=== PATIENT | female | born 1960 | race Caucasian/White ===

== ENCOUNTER 2019-05-05 16:17 | Observation (INO) ==
[2019-05-05 18:37] LABS: INR 1.7
[2019-05-05 18:53] LABS: BUN/Creatinine Ratio 24 (6-26); Blood Urea Nitrogen 19 mg/dL (6-20); Calcium 8.8 mg/dL (8.6-10.3); Carbon Dioxide 24 mEq/L (23-29); Chloride 102 mEq/L (98-107); Glucose 188 mg/dL (70-105); Osmolality,Calculated 297 (280-300); Potassium 3.6 mEq/L (3.5-5.1); Sodium 140 mEq/L (136-145); Troponin I < 0.03 ng/mL (< 0.04); eGFR For African Americans > 60 (> 60); eGFR For Non-African Americans > 60 (> 60)
[2019-05-05 18:56] LABS: Basophils % 0.3 %; Eosinophils # 0.3 K/mcL (0.0-0.6); Eosinophils % 2.9 %; Hematocrit 36.5 % (35.3-44.9); Hemoglobin 11.3 g/dL (11.5-15.4); Immature Granulocytes % 0.4 % (0-4); Lymphocytes # 0.7 K/mcL (0.6-4.6); Lymphocytes % 5.9 %; Mean Corpuscular Volume 87.3 fL (83.0-100.0); Monocytes % 9.2 %; Neutrophils # 9.1 K/mcL (1.6-8.9); Platelet Count 170 K/mcL (140-400); Red Blood Count 4.18 M/mcL (3.82-4.97); Red Cell Distribution Width 16.1 % (11.5-14.5); Segmented Neutrophils % 81.3 %; White Blood Count 11.1 K/mcL (4.3-11.1)
[2019-05-05] MEDS ORDERED: 0.9 % Sodium Chloride 1,000 ML IVC ONE (19:05)
[2019-05-05] MEDS ORDERED: Isovue-370 500 ML BOTTLE IVP ONE ×2 (19:05→21:17)
[2019-05-05] MEDS ORDERED: methylPREDNISolone 125 MG/2 ML VIAL IVP ONE (19:08)
[2019-05-05 23:10] LABS: Alanine Aminotransferase 58 Units/L (7-52); Albumin 2.8 g/dL (3.5-5.7); Albumin/Globulin Ratio 0.7 (1.1-2.2); Alkaline Phosphatase 397 Units/L (34-104); Aspartate Amino Transferase 147 Units/L (13-39); Bilirubin,Direct 0.9 mg/dL (0.0-0.2); Bilirubin,Indirect 0.6 mg/dL (0.0-1.0); Bilirubin,Total 1.5 mg/dL (0.3-1.0); Globulin 4.1 g/dL (2.4-3.5); Total Protein 6.9 g/dL (6.4-8.9)
[2019-05-06] MEDS ORDERED: Isovue-370 500 ML BOTTLE IVP ONE (04:50)
[2019-05-06] MEDS ORDERED: Naloxone 0.4 MG/ML INJ IVP PRN (04:51)
[2019-05-06] MEDS ORDERED: methylPREDNISolone 125 MG/2 ML VIAL IVP ONE (05:33)
[2019-05-06] MEDS: 0.9 % Sodium Chloride 1,000 ML IVC SCH ×2 (05:40→18:28)
[2019-05-06 06:27] LABS: Hematocrit 35.8 % (35.3-44.9); Hemoglobin 11.1 g/dL (11.5-15.4); Mean Corpuscular Hemoglobin 27.2 pg (28.0-33.3); Mean Corpuscular Volume 87.7 fL (83.0-100.0); Mean Platelet Volume 9.6 fL (9.4-12.4); Platelet Count 159 K/mcL (140-400); Red Blood Count 4.08 M/mcL (3.82-4.97); White Blood Count 12.8 K/mcL (4.3-11.1)
[2019-05-06 06:31] LABS: INR 1.6; Prothrombin Time 18.7 Seconds (9.4-12.1)
[2019-05-06 06:45] LABS: Alanine Aminotransferase 59 Units/L (7-52); Albumin 2.8 g/dL (3.5-5.7); Albumin/Globulin Ratio 0.7 (1.1-2.2); Alkaline Phosphatase 402 Units/L (34-104); Aspartate Amino Transferase 148 Units/L (13-39); BUN/Creatinine Ratio 36 (6-26); Bilirubin,Direct 0.7 mg/dL (0.0-0.2); Bilirubin,Indirect 0.7 mg/dL (0.0-1.0); Bilirubin,Total 1.4 mg/dL (0.3-1.0); Blood Urea Nitrogen 21 mg/dL (6-20); Calcium 8.8 mg/dL (8.6-10.3); Carbon Dioxide 22 mEq/L (23-29); Chloride 106 mEq/L (98-107); Globulin 4.1 g/dL (2.4-3.5); Glucose 209 mg/dL (70-105); Magnesium 2.1 mg/dL (1.6-2.6); Osmolality,Calculated 297 (280-300); Phosphorous 3.3 mg/dL (2.7-4.5); Potassium 4.1 mEq/L (3.5-5.1); Sodium 139 mEq/L (136-145); Total Protein 6.9 g/dL (6.4-8.9); eGFR For African Americans > 60 (> 60); eGFR For Non-African Americans > 60 (> 60)
[2019-05-06] MEDS: Azithromycin 500 MG in D5% in Water 250 ML IVPB SCH (08:06)
[2019-05-06] MEDS ORDERED: Gabapentin 300 MG CAPSULE PO SCH (09:00)
[2019-05-06] MEDS: cefTRIAXone 1,000 MG in Water for inj. (sterile) 10 ML IVP SCH (09:26)
[2019-05-06] MEDS ORDERED: 0.9 % Sodium Chloride 250 ML IVC SCH (13:30)
[2019-05-06 14:42] LABS: Albumin 2.8 g/dL (3.5-5.7)
[2019-05-06 14:47] LABS: Carcinoembryonic Antigen 87.4 ng/mL (Less than 5.0)
[2019-05-06] MEDS ORDERED: Dextrose Gel 15 GM/37.5 ML TUBE PO PRN ×2 (15:35)
[2019-05-06] MEDS ORDERED: *HR* Dextrose 50 % in Water (Syg) 50 ML SYRINGE IVP PRN (15:35)
[2019-05-06] MEDS ORDERED: D5% in Water 1,000 ML IVC PRN (15:35)
[2019-05-06] MEDS: Insulin LISPRO 300 UNITS/3 ML VIAL SQ SCH ×2 (17:48→22:45)
[2019-05-06] MEDS ORDERED: *HR* Heparin 5,000 UNIT/ML VIAL SQ SCH (18:00)
[2019-05-06] MEDS ORDERED: Benzonatate 100 MG CAPSULE PO PRN (21:08)
[2019-05-06] MEDS: Gabapentin 300 MG CAPSULE PO SCH (22:43)
[2019-05-07] MEDS: Insulin LISPRO 300 UNITS/3 ML VIAL SQ SCH ×4 (08:29→20:53)
[2019-05-07] MEDS: Azithromycin 500 MG in D5% in Water 250 ML IVPB SCH (08:36)
[2019-05-07] MEDS: Gabapentin 300 MG CAPSULE PO SCH (08:37)
[2019-05-07] MEDS: cefTRIAXone 1,000 MG in Water for inj. (sterile) 10 ML IVP SCH (08:37)
[2019-05-07] MEDS: Loratadine 10 MG TABLET PO SCH (08:38)
[2019-05-07] MEDS ORDERED: NON-FORMULARY MEDICATION 1 EACH EACH (Omeprazole Magnesium [Prilosec Otc] 20 MG) PO SCH (09:00)
[2019-05-07] MEDS ORDERED: (Ezetimibe [Zetia] 10 MG) PO SCH (09:00)
[2019-05-07] MEDS: Benzonatate 100 MG CAPSULE PO PRN ×2 (09:56→21:07)
[2019-05-07] MEDS: Ketorolac 15 MG/ML VIAL IVP PRN ×3 (09:57→21:08)
[2019-05-07 10:40] LABS: INR 1.5; Prothrombin Time 17.6 Seconds (9.4-12.1)
[2019-05-07 10:49] LABS: % Iron Saturation 19 % (15-50); Iron 49 mcg/dL (50-170); Transferrin 189 mg/dL (203-362)
[2019-05-07 11:07] LABS: Ferritin 1116 ng/mL (10-120)
[2019-05-07 11:15] LABS: Folate > 22.3 ng/mL (3.0-16.0); Vitamin B12 > 1500 pg/mL (250-1100)
[2019-05-07] MEDS ORDERED: 0.9 % Sodium Chloride 500 ML ONE (13:27)
[2019-05-07] MEDS ORDERED: *HR* Midazolam HCl 2 MG/2 ML VIAL IVP ONE (13:32)
[2019-05-07] MEDS ORDERED: *HR* FentaNYL (PF) 100 MCG/2 ML VIAL IVP ONE (13:32)
[2019-05-07] MEDS ORDERED: Gabapentin 300 MG CAPSULE PO SCH (21:00)
[2019-05-08] MEDS ORDERED: *HR* Heparin 5,000 UNIT/ML VIAL SQ SCH (06:00)
[2019-05-08] MEDS: Insulin LISPRO 300 UNITS/3 ML VIAL SQ SCH (08:07)
[2019-05-08] MEDS: Azithromycin 500 MG in D5% in Water 250 ML IVPB SCH (08:08)
[2019-05-08] MEDS: cefTRIAXone 1,000 MG in Water for inj. (sterile) 10 ML IVP SCH (08:09)
[2019-05-08] MEDS: Loratadine 10 MG TABLET PO SCH (08:10)
[2019-05-08 10:29] VITALS: BP 133/80
[2019-05-08] MEDS: Ketorolac 15 MG/ML VIAL IVP PRN (10:50)
[2019-05-08] MEDS: Benzonatate 100 MG CAPSULE PO PRN (10:51)
[2019-05-09 09:47] LABS: AFP Tumor Marker Non-Pregnant 4 ng/mL (0-9); Cancer Antigen-GI (CA 19-9) 40220 U/mL (0-37)
[2019-05-09 09:51] LABS: Immunoglobulin A 858 mg/dL (68-408); Immunoglobulin G 1600 mg/dL (768-1632); Immunoglobulin M 58 mg/dL (35-263)
[2019-05-09 11:07] LABS: Kappa Qnt Free Light Chains 3.18 mg/dL (0.33-1.94); Lambda Qnt Free Light Chains 2.97 mg/dL (0.57-2.63)
[2019-05-11 05:33] LABS: Alpha 2 Globulin (PEP) 0.94 g/dL (0.48-1.05); Beta Globulin (PEP) 1.18 g/dL (0.48-1.10)
[2019-05-11 12:38] LABS: IFE Reflexed IFE Done
== END 2019-05-08 12:31 | disposition home or self-care (01) ==
LOC: 3ANU 16:17 → EMEROOARM 16:17 → SUATTDRO 05-06 00:18 → 3ANU 05-06 00:53
PROVIDERS: ADMIT Internal Medicine; ATTEND Internal Medicine
PROC: IRLIVER (2019-05-06 13:00)

== ENCOUNTER 2019-05-12 18:16 | Inpatient (IN) ==
[2019-05-12 19:01] LABS: Basophils % 0.3 %; Eosinophils # 0.3 K/mcL (0.0-0.6); Eosinophils % 2.2 %; Hematocrit 36.8 % (35.3-44.9); Hemoglobin 11.5 g/dL (11.5-15.4); Immature Granulocytes % 0.9 % (0-4); Lymphocytes # 0.6 K/mcL (0.6-4.6); Lymphocytes % 3.6 %; Mean Corpuscular HGB Conc 31.3 g/dL (31.6-35.5); Mean Corpuscular Hemoglobin 27.3 pg (28.0-33.3); Mean Corpuscular Volume 87.4 fL (83.0-100.0); Mean Platelet Volume 9.9 fL (9.4-12.4); Monocytes # 1.5 K/mcL (0.0-1.3); Monocytes % 9.9 %; Neutrophils # 12.8 K/mcL (1.6-8.9); Nucleated Red Blood Cells 0.2 /100 WBC (0); Platelet Count 150 K/mcL (140-400); Red Blood Count 4.21 M/mcL (3.82-4.97); Red Cell Distribution Width 17.6 % (11.5-14.5); Segmented Neutrophils % 83.1 %; White Blood Count 15.4 K/mcL (4.3-11.1)
[2019-05-12 19:17] LABS: INR 1.9; Prothrombin Time 21.6 Seconds (9.4-12.1)
[2019-05-12 19:24] LABS: Alanine Aminotransferase 92 Units/L (7-52); Albumin 2.7 g/dL (3.5-5.7); Albumin/Globulin Ratio 0.7 (1.1-2.2); Alkaline Phosphatase 545 Units/L (34-104); Aspartate Amino Transferase 242 Units/L (13-39); BUN/Creatinine Ratio 36 (6-26); Bilirubin,Total 4.3 mg/dL (0.3-1.0); Blood Urea Nitrogen 23 mg/dL (6-20); Calcium 8.9 mg/dL (8.6-10.3); Carbon Dioxide 24 mEq/L (23-29); Chloride 100 mEq/L (98-107); Globulin 3.8 g/dL (2.4-3.5); Glucose 203 mg/dL (70-105); Magnesium 1.7 mg/dL (1.6-2.6); Osmolality,Calculated 297 (280-300); Potassium 3.3 mEq/L (3.5-5.1); Sodium 139 mEq/L (136-145); Total Protein 6.5 g/dL (6.4-8.9); Troponin I 0.03 ng/mL (< 0.04); eGFR For African Americans > 60 (> 60); eGFR For Non-African Americans > 60 (> 60)
[2019-05-12] MEDS ORDERED: Cefepime HCl 1,000 MG in 0.9 % Sodium Chloride Mini Bag 100 ML IVPB ONE (19:47)
[2019-05-12] MEDS ORDERED: 0.9 % Sodium Chloride 1,000 ML IV ONE (19:57)
[2019-05-12] MEDS ORDERED: Isovue-370 500 ML BOTTLE IVP ONE (19:57)
[2019-05-12] MEDS ORDERED: methylPREDNISolone 125 MG/2 ML VIAL IVP ONE (19:59)
[2019-05-12] MEDS: 0.9 % Sodium Chloride 1,000 ML IV ONE ×2 (20:14→21:02)
[2019-05-12] MEDS ORDERED: Ondansetron 4 MG/2 ML VIAL IVP PRN (21:10)
[2019-05-12] MEDS ORDERED: *HR* Promethazine 25 MG/ML VIAL IVP PRN (21:10)
[2019-05-12] MEDS ORDERED: Potassium Chloride Elixir 20 MEQ/15 ML UDC PO ONE (21:32)
[2019-05-12] MEDS: *HR* Heparin 5,000 UNIT/ML VIAL SQ SCH (23:09)
[2019-05-12] MEDS: Albumin 25% 25gram/100mL 25 GM/100 ML IV.SOLN IVPB SCH (23:10)
[2019-05-12] MEDS: Gabapentin 300 MG CAPSULE PO SCH (23:10)
[2019-05-12] MEDS: Benzonatate 100 MG CAPSULE PO PRN (23:10)
[2019-05-12 23:40] LABS: Bilirubin,Urine Moderate (Negative); Blood,Urine Negative (Negative); Clarity,Urine Clear (Clear); Color,Urine Dark Yellow (Yellow); Glucose,Urine (UA) Normal (Normal); Ketones,Urine Negative (Negative); Leukocyte Esterase,Urine Negative (Negative); Nitrite,Urine Negative (Negative); Protein,Urine Trace mg/dL (Neg-Trace); Specific Gravity,Urine > 1.030 (1.010-1.025); Urobilinogen,Urine Normal (Normal)
[2019-05-13] MEDS ORDERED: Furosemide 40 MG/4 ML VIAL IVP ONE
[2019-05-13] MEDS ORDERED: *HR* Dextrose 50 % in Water (Syg) 50 ML SYRINGE IVP PRN ×2 (00:02→12:21)
[2019-05-13] MEDS ORDERED: Dextrose Gel 15 GM/37.5 ML TUBE PO PRN ×4 (00:02→12:21)
[2019-05-13] MEDS: Albumin 25% 25gram/100mL 25 GM/100 ML IV.SOLN IVPB SCH (00:58)
[2019-05-13] MEDS: Levothyroxine 25 MCG TABLET PO SCH (05:47)
[2019-05-13] MEDS: *HR* Heparin 5,000 UNIT/ML VIAL SQ SCH ×3 (05:47→22:09)
[2019-05-13 07:15] LABS: Alanine Aminotransferase 78 Units/L (7-52); Albumin 3.1 g/dL (3.5-5.7); Alkaline Phosphatase 472 Units/L (34-104); Aspartate Amino Transferase 206 Units/L (13-39); BUN/Creatinine Ratio 40 (6-26); Basophils % 0.1 %; Bilirubin,Direct 2.9 mg/dL (0.0-0.2); Bilirubin,Indirect 1.1 mg/dL (0.0-1.0); Blood Urea Nitrogen 23 mg/dL (6-20); Calcium 8.6 mg/dL (8.6-10.3); Carbon Dioxide 25 mEq/L (23-29); Chloride 102 mEq/L (98-107); Eosinophils # 0.1 K/mcL (0.0-0.6); Eosinophils % 0.6 %; Globulin 3.2 g/dL (2.4-3.5); Glucose 189 mg/dL (70-105); Hematocrit 31.1 % (35.3-44.9); Immature Granulocytes % 1.5 % (0-4); Lymphocytes # 0.6 K/mcL (0.6-4.6); Lymphocytes % 4.5 %; Magnesium 1.8 mg/dL (1.6-2.6); Mean Corpuscular HGB Conc 32.2 g/dL (31.6-35.5); Mean Corpuscular Hemoglobin 26.9 pg (28.0-33.3); Mean Corpuscular Volume 83.6 fL (83.0-100.0); Mean Platelet Volume 9.6 fL (9.4-12.4); Monocytes # 0.3 K/mcL (0.0-1.3); Monocytes % 2.4 %; Neutrophils # 12.3 K/mcL (1.6-8.9); Nucleated Red Blood Cells 0.1 /100 WBC (0); Osmolality,Calculated 301 (280-300); Phosphorous 2.9 mg/dL (2.7-4.5); Platelet Count 136 K/mcL (140-400); Potassium 3.8 mEq/L (3.5-5.1); Red Blood Count 3.72 M/mcL (3.82-4.97); Red Cell Distribution Width 17.5 % (11.5-14.5); Segmented Neutrophils % 90.9 %; Sodium 141 mEq/L (136-145); Total Protein 6.3 g/dL (6.4-8.9); White Blood Count 13.6 K/mcL (4.3-11.1); eGFR For African Americans > 60 (> 60); eGFR For Non-African Americans > 60 (> 60)
[2019-05-13 07:23] LABS: Prothrombin Time 22.2 Seconds (9.4-12.1)
[2019-05-13] MEDS ORDERED: (Ezetimibe [Zetia] 10 MG) PO SCH (09:00)
[2019-05-13] MEDS: Aspirin Enteric Coated 81 MG Tablet PO SCH (09:42)
[2019-05-13] MEDS: Furosemide 40 MG TABLET PO SCH (09:43)
[2019-05-13] MEDS: Loratadine 10 MG TABLET PO SCH (09:43)
[2019-05-13] MEDS: Benzonatate 100 MG CAPSULE PO PRN ×2 (09:43→20:47)
[2019-05-13] MEDS: (Ezetimibe [Zetia] 10 MG) PO SCH (12:00)
[2019-05-13] MEDS ORDERED: D5% in Water 1,000 ML IVC PRN (12:21)
[2019-05-13] MEDS: Insulin LISPRO 300 UNITS/3 ML VIAL SQ SCH ×3 (12:39→20:47)
[2019-05-13 13:26] LABS: Estimated Average Glucose 131 mg/dl
[2019-05-13] MEDS: Ipratropium/Albuterol Neb 3 ML IH SCH ×2 (15:18→22:17)
[2019-05-13] MEDS ORDERED: Perflutren Lipid Microsphere 1.3 ML in 0.9 % Sodium Chloride 8.7 ML IVP ONE (16:23)
[2019-05-13] MEDS: Gabapentin 300 MG CAPSULE PO SCH (20:47)
[2019-05-14] MEDS: Levalbuterol Neb 1.25 MG/3 ML IH SCH ×4 (04:10→22:18)
[2019-05-14 05:05] LABS: Basophils % 0.1 %; Eosinophils % 0.1 %; Lymphocytes # 0.5 K/mcL (0.6-4.6); Lymphocytes % 2.9 %; Monocytes % 6.2 %
[2019-05-14 05:09] LABS: Hematocrit 30.6 % (35.3-44.9); Hemoglobin 9.9 g/dL (11.5-15.4); Immature Granulocytes % 1.8 % (0-4); Immature Platelets 2.2 % (1.1-6.1); Mean Corpuscular HGB Conc 32.4 g/dL (31.6-35.5); Mean Corpuscular Hemoglobin 27.2 pg (28.0-33.3); Mean Corpuscular Volume 84.1 fL (83.0-100.0); Mean Platelet Volume 10.3 fL (9.4-12.4); Monocytes # 1.1 K/mcL (0.0-1.3); Neutrophils # 15.2 K/mcL (1.6-8.9); Nucleated Red Blood Cells 0.2 /100 WBC (0); Platelet Count 143 K/mcL (140-400); Red Blood Count 3.64 M/mcL (3.82-4.97); Red Cell Distribution Width 18.2 % (11.5-14.5); Segmented Neutrophils % 88.9 %
[2019-05-14 05:24] LABS: Alanine Aminotransferase 84 Units/L (7-52); Albumin 2.8 g/dL (3.5-5.7); Albumin/Globulin Ratio 0.9 (1.1-2.2); Alkaline Phosphatase 489 Units/L (34-104); Aspartate Amino Transferase 208 Units/L (13-39); BUN/Creatinine Ratio 39 (6-26); Blood Urea Nitrogen 32 mg/dL (6-20); Calcium 8.6 mg/dL (8.6-10.3); Carbon Dioxide 25 mEq/L (23-29); Chloride 102 mEq/L (98-107); Globulin 3.2 g/dL (2.4-3.5); Glucose 242 mg/dL (70-105); Magnesium 1.9 mg/dL (1.6-2.6); Osmolality,Calculated 305 (280-300); Potassium 3.7 mEq/L (3.5-5.1); Sodium 140 mEq/L (136-145); eGFR For African Americans > 60 (> 60); eGFR For Non-African Americans > 60 (> 60)
[2019-05-14] MEDS: Levothyroxine 25 MCG TABLET PO SCH (05:38)
[2019-05-14] MEDS: *HR* Heparin 5,000 UNIT/ML VIAL SQ SCH ×3 (05:38→20:50)
[2019-05-14] MEDS ORDERED: predniSONE 20 MG TABLET PO SCH (09:00)
[2019-05-14] MEDS: Aspirin Enteric Coated 81 MG Tablet PO SCH (10:34)
[2019-05-14] MEDS: Vitamin B Complex/Vit C/Vit E 1 EACH TABLET PO SCH (10:34)
[2019-05-14] MEDS: Furosemide 40 MG TABLET PO SCH (10:34)
[2019-05-14] MEDS: Loratadine 10 MG TABLET PO SCH (10:34)
[2019-05-14] MEDS: Insulin LISPRO 300 UNITS/3 ML VIAL SQ SCH ×4 (10:34→20:51)
[2019-05-14] MEDS: levoFLOXacin 750 MG/150 ML 750 MG/150 ML BAG IVPB SCH (11:07)
[2019-05-14] MEDS: (Ezetimibe [Zetia] 10 MG) PO SCH (11:08)
[2019-05-14] MEDS ORDERED: Albumin 25% 25gram/100mL 25 GM/100 ML IV.SOLN IVPB ONE (11:19)
[2019-05-14] MEDS ORDERED: Insulin LISPRO 300 UNITS/3 ML VIAL SQ ONE (13:00)
[2019-05-14] MEDS: Gabapentin 300 MG CAPSULE PO SCH (20:50)
[2019-05-14] MEDS: Benzonatate 100 MG CAPSULE PO PRN (20:50)
[2019-05-14] MEDS: Insulin DETEMIR 100 UNIT/ML X5UNITS SQ SCH (20:51)
[2019-05-15 04:21] LABS: Basophils % 0.1 %; Eosinophils % 0.1 %; Hematocrit 30.6 % (35.3-44.9); Hemoglobin 9.8 g/dL (11.5-15.4); Immature Granulocytes % 1.5 % (0-4); Lymphocytes # 0.5 K/mcL (0.6-4.6); Lymphocytes % 2.7 %; Mean Corpuscular Volume 84.3 fL (83.0-100.0); Mean Platelet Volume 10.2 fL (9.4-12.4); Monocytes # 1.2 K/mcL (0.0-1.3); Neutrophils # 15.2 K/mcL (1.6-8.9); Nucleated Red Blood Cells 0.3 /100 WBC (0); Platelet Count 141 K/mcL (140-400); Red Blood Count 3.63 M/mcL (3.82-4.97); Red Cell Distribution Width 18.4 % (11.5-14.5); Segmented Neutrophils % 88.6 %; White Blood Count 17.2 K/mcL (4.3-11.1)
[2019-05-15] MEDS: Levalbuterol Neb 1.25 MG/3 ML IH SCH ×4 (04:23→22:19)
[2019-05-15 04:34] LABS: Alanine Aminotransferase 96 Units/L (7-52); Albumin 2.8 g/dL (3.5-5.7); Albumin/Globulin Ratio 0.8 (1.1-2.2); Alkaline Phosphatase 519 Units/L (34-104); Aspartate Amino Transferase 224 Units/L (13-39); BUN/Creatinine Ratio 49 (6-26); Bilirubin,Total 4.5 mg/dL (0.3-1.0); Blood Urea Nitrogen 31 mg/dL (6-20); Calcium 8.8 mg/dL (8.6-10.3); Carbon Dioxide 25 mEq/L (23-29); Chloride 104 mEq/L (98-107); Globulin 3.3 g/dL (2.4-3.5); Glucose 207 mg/dL (70-105); Osmolality,Calculated 301 (280-300); Potassium 3.6 mEq/L (3.5-5.1); Sodium 139 mEq/L (136-145); Total Protein 6.1 g/dL (6.4-8.9); eGFR For African Americans > 60 (> 60); eGFR For Non-African Americans > 60 (> 60)
[2019-05-15] MEDS: *HR* Heparin 5,000 UNIT/ML VIAL SQ SCH ×3 (05:04→20:16)
[2019-05-15] MEDS: Levothyroxine 25 MCG TABLET PO SCH (05:04)
[2019-05-15] MEDS ORDERED: predniSONE 20 MG TABLET PO SCH (09:00)
[2019-05-15] MEDS: Insulin LISPRO 300 UNITS/3 ML VIAL SQ SCH ×4 (09:10→20:17)
[2019-05-15] MEDS: levoFLOXacin 750 MG/150 ML 750 MG/150 ML BAG IVPB SCH (09:11)
[2019-05-15] MEDS: Furosemide 40 MG TABLET PO SCH (09:12)
[2019-05-15] MEDS: Aspirin Enteric Coated 81 MG Tablet PO SCH (09:12)
[2019-05-15] MEDS: (Ezetimibe [Zetia] 10 MG) PO SCH (09:12)
[2019-05-15] MEDS: Vitamin B Complex/Vit C/Vit E 1 EACH TABLET PO SCH (09:12)
[2019-05-15] MEDS: Loratadine 10 MG TABLET PO SCH (09:12)
[2019-05-15 09:40] LABS: INR 1.9; Prothrombin Time 21.4 Seconds (9.4-12.1)
[2019-05-15] MEDS: Furosemide 40 MG/4 ML VIAL IVP SCH ×2 (15:35→20:16)
[2019-05-15] MEDS: Gabapentin 300 MG CAPSULE PO SCH (20:16)
[2019-05-15] MEDS: Benzonatate 100 MG CAPSULE PO PRN (20:16)
[2019-05-15] MEDS: Insulin DETEMIR 100 UNIT/ML X5UNITS SQ SCH (20:17)
[2019-05-16] MEDS: Levalbuterol Neb 1.25 MG/3 ML IH SCH ×3 (03:25→15:22)
[2019-05-16 03:26] LABS: Basophils % 0.1 %; Eosinophils # 0.2 K/mcL (0.0-0.6); Hemoglobin 9.7 g/dL (11.5-15.4); Lymphocytes # 0.5 K/mcL (0.6-4.6); Lymphocytes % 2.9 %; Mean Corpuscular HGB Conc 31.3 g/dL (31.6-35.5); Mean Corpuscular Hemoglobin 27.2 pg (28.0-33.3); Mean Corpuscular Volume 86.8 fL (83.0-100.0); Mean Platelet Volume 9.9 fL (9.4-12.4); Monocytes # 1.1 K/mcL (0.0-1.3); Monocytes % 6.4 %; Neutrophils # 14.4 K/mcL (1.6-8.9); Nucleated Red Blood Cells 0.4 /100 WBC (0); Platelet Count 115 K/mcL (140-400); Red Blood Count 3.57 M/mcL (3.82-4.97); Red Cell Distribution Width 18.9 % (11.5-14.5); Segmented Neutrophils % 88.6 %; White Blood Count 16.3 K/mcL (4.3-11.1)
[2019-05-16 03:34] LABS: Alanine Aminotransferase 112 Units/L (7-52); Albumin 2.7 g/dL (3.5-5.7); Albumin/Globulin Ratio 0.8 (1.1-2.2); Alkaline Phosphatase 502 Units/L (34-104); Aspartate Amino Transferase 262 Units/L (13-39); BUN/Creatinine Ratio 47 (6-26); Bilirubin,Total 5.8 mg/dL (0.3-1.0); Blood Urea Nitrogen 35 mg/dL (6-20); Calcium 8.6 mg/dL (8.6-10.3); Carbon Dioxide 25 mEq/L (23-29); Chloride 102 mEq/L (98-107); Globulin 3.5 g/dL (2.4-3.5); Glucose 219 mg/dL (70-105); Magnesium 1.8 mg/dL (1.6-2.6); Osmolality,Calculated 297 (280-300); Potassium 3.8 mEq/L (3.5-5.1); Sodium 136 mEq/L (136-145); Total Protein 6.2 g/dL (6.4-8.9); eGFR For African Americans > 60 (> 60); eGFR For Non-African Americans > 60 (> 60)
[2019-05-16] MEDS: *HR* Heparin 5,000 UNIT/ML VIAL SQ SCH ×2 (05:28→12:40)
[2019-05-16] MEDS: Levothyroxine 25 MCG TABLET PO SCH (05:28)
[2019-05-16] MEDS: Aspirin Enteric Coated 81 MG Tablet PO SCH (08:14)
[2019-05-16] MEDS: Furosemide 40 MG/4 ML VIAL IVP SCH (08:14)
[2019-05-16] MEDS: Loratadine 10 MG TABLET PO SCH (08:15)
[2019-05-16] MEDS: Vitamin B Complex/Vit C/Vit E 1 EACH TABLET PO SCH (08:15)
[2019-05-16] MEDS: Insulin LISPRO 300 UNITS/3 ML VIAL SQ SCH ×3 (08:15→18:22)
[2019-05-16] MEDS: (Ezetimibe [Zetia] 10 MG) PO SCH (08:16)
[2019-05-16 12:02] VITALS: BP 90/54
[2019-05-16] MEDS ORDERED: Acetaminophen 325 MG TABLET PO PRN (12:37)
[2019-05-16] MEDS ORDERED: *HR* OxyCODONE Immed Rel 5 MG TABLET PO PRN (13:04)
== END 2019-05-16 19:00 | disposition short-term general hospital (02) | DRG 436 ==
LOC: EMEROOARM 18:16 → 3BNU 18:16
PROVIDERS: ADMIT Internal Medicine; ATTEND Internal Medicine